=== PATIENT | male | born 1980 | race Caucasian/White ===

== ENCOUNTER 2016-11-30 16:48 | Emergency (ER) | payer MEDICAID ==
[2016-11-30] MEDS ORDERED: FLUCONAZOLE 100 MG TABLET PO STA (17:46)
[2016-11-30] MEDS ORDERED: FLUCONAZOLE 100 MG TABLET ONE (17:50)
== END 2016-11-30 17:56 | disposition home or self-care (01) ==
DX: T69.1XXA Chilblains, initial encounter (principal); X31.XXXA Exposure to excessive natural cold, initial encounter; B35.3 Tinea pedis; Z59.0 Homelessness; F17.200 Nicotine dependence, unspecified, uncomplicated
CPT/HCPCS: 99283; A9270

== ENCOUNTER 2017-04-11 08:00 | Outpatient (CLI) | payer MEDICAID ==
[2017-04-11 09:34] LABS: BILIRUBIN,URINE NEGATIVE (NEGATIVE)
[2017-04-11 09:38] LABS: UA CHARGE (STRIP ONLY) YES; UR CULTURE IF IND NOT INDICATED
== END 2017-04-11 08:01 | disposition home or self-care (01) ==
LOC: LAB.R 08:00
PROVIDERS: ATTEND Emergency Medicine
DX: R80.0 Isolated proteinuria (principal)
CPT/HCPCS: 81001; 81003; 87086